=== PATIENT | female | born 1980 | race Caucasian/White ===

== ENCOUNTER 2020-03-10 08:47 | Outpatient (REF) | payer BC, SELFPAY ==
--- NOTE | 2020-03-10 | US_ITS ---
EXAMINATION: ULTRASOUND-GUIDED THYROID FINE-NEEDLE ASPIRATION CLINICAL INFORMATION: Right thyroid nodule COMPARISON: Previous thyroid ultrasound 01/16/2020 TECHNIQUE: Procedure and risks and benefits including bleeding and infection were discussed with the patient and informed consent was obtained. The right neck was prepped and draped in usual sterile fashion. Skin and soft tissues were anesthetized with 1% lidocaine plain. Using ultrasound guidance and a 25-gauge needle, access to the 1.3 x 0.8 x 0.9 cm slightly heterogeneous nodule in the inferior right lobe was obtained. 3 25-gauge FNA specimens were obtained. FINDINGS: There is a 1.3 x 0.8 x 0.9 cm slightly heterogeneous nodule in the inferior right lobe that was targeted for fine-needle aspiration. US/US guided fine needle asp IMPRESSION: Right thyroid nodule fine-needle aspiration.
[2020-03-10] MEDS: Lidocaine HCl 1 % MPF 5 ML VIAL SUBCUT (09:08)
== END 2020-03-10 08:48 | disposition home or self-care (01) ==
LOC: HO.US 08:47
PROVIDERS: PCP Internal Medicine; Visit Provider Internal Medicine
DX: E04.1 Nontoxic single thyroid nodule (principal)
CPT/HCPCS: 10005; 88172; 88173

== ENCOUNTER → 2020-04-23 12:11 | Outpatient (BNVA) | payer BC, SELFPAY | PROVIDERS: PCP Internal Medicine; Visit Provider Physician Assistant | DX: Z76.89 Persons encountering health services in other specified circumstances (principal) ==

== ENCOUNTER → 2020-06-10 08:14 | Outpatient (BNVA) | payer BC, SELFPAY | PROVIDERS: PCP Internal Medicine; Visit Provider Physician Assistant ==

== ENCOUNTER 2020-09-16 12:23 | Outpatient (REF) | payer BC, SELFPAY | END 2020-09-16 12:24 | disposition home or self-care (01) | LOC: HO.LAB 12:23 | PROVIDERS: Visit Provider Internal Medicine | DX: Z20.822 Contact with and (suspected) exposure to COVID-19 (principal) | CPT/HCPCS: C9803; U0003; U0005 ==

== ENCOUNTER 2024-04-02 11:08 | Outpatient (REF) | payer BC, SELFPAY ==
[2024-04-02 14:24] LABS: MANUAL DIFF FLAG NO
[2024-04-02 14:27] LABS: Basophils Absolute Auto 0.1 X10*3/uL (0.0-0.2); Basophils Percent Auto 1.1 % (0-2); Eosinophils Absolute Auto 0.3 X10*3/uL (0.0-0.4); Hematocrit 36.7 % (37.0-47.0); Hemoglobin 12.2 g/dl (12.0-16.0); Imm Gran Abs Auto 0.02 X10*3/uL (0.00-0.03); Imm Gran Pct Auto 0.3 % (0.0-0.4); Mean Corpuscular HGB Conc 33.2 g/dl (31.0-35.0); Mean Corpuscular Hemoglobin 29.6 pg (27.0-33.0); Mean Corpuscular Volume 89.1 fL (80.0-98.0); Mean Platelet Volume 9.4 fL (9.4-12.3); Monocytes Absolute Auto 0.8 X10*3/uL (0.1-1.2); Monocytes Percent Auto 12.4 % (2-11); Neutrophils Absolute Auto 3.4 x10*3/uL (2.0-8.3); Neutrophils Percent Auto 51.2 % (45-73); Platelet Count 427 X10*3/uL (160-400); Red Blood Count 4.12 X10*6/uL (4.20-5.50); Red Cell Distribution Width 13.6 % (11.0-16.0); White Blood Count 6.6 X10*3/uL (4.8-10.8)
[2024-04-02 14:45] LABS: Alanine Aminotransferase 17 U/L (0-31); Albumin Level 4.3 g/dL (3.5-5.0); Alkaline Phosphatase 63 U/L (39-117); Anion Gap 13 (12-20); Aspartate Amino Transferase 23 U/L (5-31); Bilirubin Total 0.4 mg/dL (0.0-1.0); Blood Urea Nitrogen 11 mg/dL (9-16); Calcium 8.8 mg/dL (8.4-10.2); Carbon Dioxide 25 mmol/L (22-29); Chloride 105 mmol/L (96-108); Cholesterol 185 mg/dL (<200); Estimated Glomerular Filt Rate > 60; Glucose Random 84 mg/dL (60-115); HDL Cholesterol 51 mg/dL (>40); LDL Cholesterol Calculated 124 mg/dL (<100); Potassium 3.7 mmol/L (3.3-5.1); Sodium 139 mmol/L (135-145); Triglycerides 50 mg/dL (<150)
[2024-04-02 14:59] LABS: Estimated Average Glucose 105 mg/dL; Hemoglobin A1C 110.3707 umol/L; Hemoglobin A1c % 5.3 % (<6.0); Total Hemoglobin (HGBA1C) 3188.8656 umol/L
[2024-04-02 15:01] LABS: TSH reflex Free T4 3.21 uIU/mL (0.32-4.0)
[2024-04-02 15:10] LABS: Folate 7.7 ng/mL (> or = 4.0); Vitamin B12 628 pg/mL (200-900)
[2024-04-03 08:25] LABS: HIV AB/AG Nonreactive (Nonreactive); HIV Num 1 0.06 S/CO (0.00-0.99); ~HepC Num1 0.14 S/CO (0.00-0.79); ~Hepatitis C Antibody Nonreactive (Nonreactive)
== END 2024-04-02 11:09 | disposition home or self-care (01) ==
LOC: HO.CHCLDS 11:08
PROVIDERS: Visit Provider Internal Medicine
DX: E66.3 Overweight (principal); Z13.1 Encounter for screening for diabetes mellitus
CPT/HCPCS: 36415; 80053; 80061; 82607; 82746; 83036; 84443; 85025; 86803; 87389

== ENCOUNTER 2025-01-21 11:02 | Outpatient (REF) | payer BC, SELFPAY ==
--- OUTSIDE RECORDS SUMMARY | 2025-01-21 10:15 | XMS_ITS | Encounter Summary ---
Author Organization [employer] Address [address] [place] [address] 7 [place] [address] Care Team Providers Care Software Configuration Specialist Name Role Phone Hunter Mcduffie MD Primary Care Prov ider Reason for Referral * Imaging (Routine) - Authorized Specialty Diagnoses / Procedures Referred By Contac t Referred To Contact Radiology Diagnoses Encounter for screening mammogram for malignant neoplasm of breast Procedures BI Mammogram Screening Tomosynthesis Bilateral Hunter Mcduffie MD [address] [place] [address] Phone: tel: fax: [facility] Referral ID Status Reason Start Date Expiration Date V isits Requested Visits Authorized [id number] Authorized 01/21/2025 01/21/2026 1 1 Encounter Details Date Type Department Care Team ([facility] st Contact Info) Description 01/21/2025 10:15 AM EDT Telemedicine [facility] [address] [place] [address] Huntre Mcduffie MD [address] [place] [address] Encounter for screening mammogram for malignant neoplasm of breast (Primary Dx) Social History Tobacco Use Types Packs/Day Years Used Date Smoking Tobacco: Never Smokeless Tobacco: Never Alcohol Use Standard Drinks/Week Comments Never 0 (1 standard drink = 0.6 oz pur e alcohol) Depression Answer Date Recorded Patient Health Questionnaire-9 Score 4 01/21/2025 Patient Health Questionnaire-9 Score 4 01/21/2025 Last PHQ-9: Questionnaire Data Not on file 0 01/21/2025 Housing Stability Answer Date Recorded What is your housing situation today? I have zoe duran 02/21/[address] you li ve. Do you have problems with any of the following? None of the above 02/21/2024 Food Insecurity Answer Date Recorded Within the past 12 months, y ou worried that your food would run out before you got money to buy more: Never True 02/21/2024 Within the past 12 months,th e food you bought just didn't last and you didn't have enough money to get more: Never True Transportation Answer Date Recorded In the past 12 months, has l ack of transportation kept you from medical appts, meetings, work or from getting things needed for daily living? No 02/21/2024 Utilities Answer Date Recorded In the past 12 months, has t he electric, gas, oil or water company threatened to shut off services in your home? No 02/21/2024 Depression Answer Date Recorded Patient Health Questionnaire-2 Score 2 01/21/2025 Internet Access Answer Date Recorded Internet Access Q1 Yes 02/21/2024 Internet Access Q2 Not on file 02/21/2024 Comments Yes Sex and Gender Information Value Date Recorded Sex Assigned at Female 02/21/2022 10:27 AM EDT Legal Sex Female 10:27 AM EDT Gender Identity Choose not to disclose 10:27 AM EDT Sexual Orientation Choose not to disclose 2021 10:27 AM EDT documented as of this encounter Functional Status * Over the past 2 weeks, how often have you been bothered by any of the following problems? Question Answer Date of Assessment Author Patient Health Questionnaire-2 Score 2 12/25 10:08 AM Carol Ruiz MA * Little interest or pleasure in doing things Answer Date of Assessment Author Several days 01/21/2025 10:08 AM Bethany Ruiz MA * Feeling down, depressed, or hopeless Answer Date of Assessment Author Several days 01/21/2025 10:08 AM Bethany Ruiz MA * Trouble falling or staying asleep, or sleeping too much Answer Date of Assessment Author Not at all 01/21/2025 10:08 AM Bethany Ruiz MA * Feeling tired or having little energy Answer Date of Assessment Author Not at all 01/21/2025 10:08 AM Bethany Ruiz MA * Poor appetite or overeating Answer Date of Assessment Author Several days 01/21/2025 10:08 AM Bethany Ruiz MA * Feeling bad about yourself - or that you are a failure or have let yourself or your family down Answer Date of Assessment Author Not at all 01/21/2025 10:08 AM Bethany Ruiz MA * Trouble concentrating on things, such as reading the newspaper or watching television Answer Date of Assessment Author Several days 01/21/2025 10:08 AM Bethany Ruiz MA * Moving or speaking so slowly that other people could have noticed? Or the opposite - being so fidgety or restless that you have been moving around a lot more than usual. Answer Date of Assessment Author Not at all 01/21/2025 10:08 AM Bethany Ruiz MA * Thoughts that you would be better off or hurting yourself in some way Answer Date of Assessment Author Not at all 01/21/2025 10:08 AM Bethany Ruiz MA * Patient Health Questionnaire-9 Score Answer Date of Assessment Author 4 01/21/2025 10:08 AM Bethany Ruiz MA * How difficult have these problems made it for you to do your work, take care of things at home, or get along with other people? Answer Date of Assessment Author Somewhat difficult 01/21/2025 10:08 AM Carol Ruiz MA documented as of this encounter Plan of Treatment Scheduled Orders Name Type Priority Associated Diagnoses Orde r Schedule BI Mammogram Screening Tomosynthesis Bilateral Imaging Routine Encounter for screening mammogram for malignant neoplasm of breast Expected: 01/21/2025, Expires: 03/23/2026 documented as of this encounter Visit Diagnoses Diagnosis Encounter for screening mammogram for malignant neoplasm of breast- Primary documented in this encounter Additional Health Concerns Assessment Noted Time PHQ-9 Depression Total Score: 4 01/22/20 25 10:08 AM EDT documented as of this encounter Care Teams Software Configuration Specialist Relationship Specialty Start Date End Date TonyHunter Babb MD [address] [place] [id number] PCP - General Internal Medicine 11/19/19 documented as of this encounter
--- OUTSIDE RECORDS SUMMARY | 2025-01-21 12:31 | XMS_ITS | Encounter Summary ---
Author Organization [employer] Address [address] [facility] 7 [place] [address] Care Team Providers Care Concrete Pointer Name Role Phone Hunter Mcduffie MD Primary Care Prov ider Reason for Visit * Reason Onset Date Comments chart prep 01/20/2025 Encounter Details Date Type Department Care Team ([facility] Contact Info) Description 01/20/2025 Telephone [facility] [address] [place] [address] Hunter Mcduffie MD [address] [place] [address] chart prep Social History Tobacco Use Types Packs/Day Years [...] AM EDT documented as of this encounter Miscellaneous Notes * Telephone Encounter - Carol Fuentes MA - 01/20/2025 11:06 AM EDT Chart Prep Labs: not done Images: done Referrals: appointment pending Vaccines due: Flu, PCV20, Tdap, and Hep B Screenings: colonoscopy and mammogram Overdue care gaps: SBIRT and PHQ-9 documented in this encounter Plan of Treatment Not on file documented as of this encounter Visit Diagnoses Not on filedocumented in this encounter Additional Health Concerns Assessment Noted Time PHQ-9 Depression Total Score: 13 024 2:37 PM EDT documented as of this encounter Care Teams Concrete Pointer Relationship Specialty Start Date End Date Hunter Mcduffie MD [address] [place] [phone] PCP - General Internal Medicine 11/19/19 documented as of this encounter
--- OUTSIDE RECORDS SUMMARY | 2025-01-21 12:31 | XMS_ITS | Encounter Summary ---
Author Organization [employer] Address [address] [facility] [address] [place] [address] Care Team Providers Care Rn Documentation Name Role Phone Hunter Mcduffie MD Primary Care Prov ider Encounter Details Date Type Department Care Team (Latest Contact Info) Description 01/21/2025 Travel Social History Tobacco Use Types Packs/Day Years [...] as of this encounter Plan of Treatment Not on file documented as of this encounter Visit Diagnoses Not on filedocumented in this encounter Additional Health Concerns Assessment Noted Time PHQ-9 Depression Total Score: 4 01/22/20 25 10:08 AM EDT documented as of this encounter Care Teams Rn Documentation Relationship Specialty Start Date End Date Hunter Mcduffie MD [address] [place] [id number] PCP - General Internal Medicine 11/19/19 documented as of this encounter
--- OUTSIDE RECORDS SUMMARY | 2025-01-21 12:31 | XMS_ITS | Clinical Summary ---
Author Organization [employer] Address [address] [facility] [address]t [place] [address] Care Team Providers Care Pvc Loader Name Role Phone Hunter Mcduffie MD Primary Care Prov ider Allergies No known active allergies Medications * This document contains information received from the source organization and may not represent a complete record from that organization. fexofenadine (Jemima) 180 MG tablet Take 1 tablet (180 mg) by mouth if needed each day (Allergies). 30 tablet 3 04/02/2024 Active ibuprofen 600 MG tabletIndicatio ns:Acute left otitis media Take 1 tablet (600 mg) by mouth every 8 (eight) hours if needed for moderate pain or mild pain. 30 tablet 1 04/08/2024 Active Active Problems Problem Noted Date Diagnosed Date Mild intermittent asthma without complication Assessment & Plan (05/06/2024 3:11 PM EST): Will order PFT to evaluate for asthma and severity Left non-suppurative otitis media 05/06/2024 Seasonal allergies 04/02/2024 Assessment & Plan (04/02/2024 12:22 PM EST): Will send jemima discussed home lakhwinder, she does not have cats or dogs at home Physical exam 04/02/2024 Assessment & Plan (04/02/2024 12:24 PM EST): Unremarkable physical exam, will send routine blood work Encounter to establish care 02/28/2024 Assessment & Plan (02/28/2024 8:35 AM EST): No follow up with pcp in 2 years No hx of hospitalization No recent er visits Pmhx- Pshx: csec 2012, tubal ligation 2012 All- Meds- Sexually active with 1 male partner A1 Severe episode of recurrent major depressive disorder, with psychotic features (CMS/HCC) 02/28/2024 Assessment & Plan (04/02/2024 12:23 PM EST): Symptoms improving, no suicidal/homicidal ideas, continue psychotherapy, call back if worsening Assessment & Plan (03/08/2024 2:28 PM EST): Psychotic features mood-incongruent Referral to psych med management and Individual therapy. Assessment & Plan (02/28/2024 8:36 AM EST): NO active sucidal/homicidal ideas, she feels down, depressed, will refer to , follow up in 6 weeks Screening for malignant neoplasm of colon 2023 Assessment & Plan (02/28/2024 8:41 AM EST): Will refer to gi for screening colon cancer Encounter for screening mamm ogram for malignant neoplasm of breast 02/28/2024 Assessment & Plan (02/28/2024 8:42 AM EST): Will send mammogram Screening for cervical cancer 02/28/2024 Assessment & Plan (02/28/2024 8:44 AM EST): Will refer for a pap smear she prefers a female provider Comments Yes Encounters Date Type Department Care Team Description 01/21/2025 10:15 AM EDT Telemedicine [facility] [address] [place] [address] Hunter Mcduffie MD Encounter for screening mammogram for malignant neoplasm of breast (Primary Dx) 01/21/2025 Travel 01/20/2025 Telephone [facility] [address] [place] [address] Hunter Mcduffie MD chart prep 01/14/2025 Orders Only [facility] [address] [place] [address] Catrina Smith MD Pelvic pain (Primary Dx); Post-menopausal bleeding 01/14/2025 Results Follow-Up [facility] [address] [place] [address] Catrina mSith MD Us Pelvis complete 01/13/2025 2:15 PM EDT Office Visit [facility] [address] [place] [address] Hunter Mcduffie MD Other fatigue (Primary Dx); Tremor; Memory loss 01/13/2025 Travel 01/09/2025 Telephone [facility] [address] [place] [address] Hunter Mcduffie MD Referral 01/09/2025 Telephone [facility] [address] [place] [address] Hunter Mcduffie MD Nurse Triage 01/09/2025 Telephone [facility] [address] [place] [address] Hunter Mcduffie MD Referral 12/20/2024 11:00 AM EDT Office Visit [facility] [address] [place] [address] Catrina Smith MD Encounter for screening for malignant neoplasm of colon (Primary Dx); Pelvic pain; Post-menopausal bleeding 12/20/2024 Travel 12/16/2024 Telephone [facility] [address] [place] [address] Hunter Mcduffie MD Nurse Triage from Last 3 Months Family History Medical History Relation Name Comments Hypertension Father Osteoarthritis Father Anxiety disorder Mother Depression Mother Colon cancer Paternal Grandfather Relation Name Status Comments Father Mother Paternal Grandfather Social History Tobacco Use Types Packs/Day Years Used Date Smoking Tobacco: Never Smokeless Tobacco: Never Tobacco Cessation:Counseling Given: Not Answered Alcohol Use Standard Drinks/Week Comments Never 0 [...] not to disclose 2021 10:27 AM EDT Last Filed Vital Signs Vital Sign Reading Time Taken Comments Blood Pressure 144/84 01/13/2025 2:43 PM EDT Pulse 74 01/13/2025 2:43 PM EDT Temperature 36.7 C (98.1 F) 01/13/2025 2:43 PM EDT Respiratory Rate 14 01/13/2025 2:43 PM EDT Oxygen Saturation 98% 01/13/2025 2:43 PM EDT Inhaled Oxygen Concentration - - Weight 72.1 kg (159 lb) 01/13/2025 2:43 PM EDT Height 153.7 cm (5' 0.5 ) 01/13/2025 2:43 PM EDT Body Mass Index 30.54 01/13/2025 2:43 PM EDT Plan of Treatment Health Maintenance Due Date Last Done Comments CT Colonography 1978 Colonoscopy 1978 Colorectal Cancer Screening 1978 Dental Oral Exam 1978 Dental Prophylaxis 1978 Dental X-Ray: Bitewings 1978 Dental X-Ray: Full Mouth 1978 FIT DNA/Cologuard 1978 FIT 1978 FOBT 1978 Sigmoidoscopy 1978 Family Planning (PISQ) 1993 DTaP/Tdap/Td Vaccines (1 - Tdap) 1997 Hepatitis B Vaccines (1 of 3 - 19+ 3-dose series) 1997 Pneumococcal Vaccine: Pediatrics (0 to 5 Years) and At-Risk Patients (6 to 49) Years (1 of 2 - PCV) 1997 Mammogram 2018 COVID-19 Vaccine (2023-2 5 season) 2024 Influenza Vaccine (#1) 2024 01/29/2015 Cervical Cancer Screening 03/04/2025 HPV/Cotest 03/04/2025 03/04/2020 Pap Smear 03/04/2025 03/04/2020 Tobacco Screening 12/20/2025 12/20/2024 Alcohol/Substance Use Screening 01/21/2026 01/21/2025 Depression Screening 01/21/2026 01/21/2025, 01/21/2025 Disability Screening 01/21/2026 01/21/2025 SDOH Screening 01/21/2026 01/21/2025 Zoster Vaccines (1 of 2) 2028 RSV Patients and Patients Aged 60 years or older (1 - 1-dose 75+ series) 2053 HIV Screening Completed 04/02/2024, 12/24/2019 Hepatitis C Screening Completed 04/02/2024 HIB Vaccines Aged Out No longer eligi ble based on patient's age to complete this topic HPV Vaccines Aged Out No longer eligi ble based on patient's age to complete this topic Hepatitis A Vaccines Aged Out No long er eligible based on patient's age to complete this topic IPV Vaccines Aged Out No longer eligi ble based on patient's age to complete this topic Meningococcal B Vaccine Aged Out No l onger eligible based on patient's age to complete this topic Meningococcal Vaccine Aged Out No cesar mercedes eligible based on patient's age to complete this topic RSV under 20 months Aged Out No longe r eligible based on patient's age to complete this topic Rotavirus Vaccines Aged Out No longer eligible based on patient's age to complete this topic Procedures Procedure Name Priority Date/Time Associated Diagnosis Comments US PELVIS TRANSVAGINAL Routine 01/10/2025 Post-menopausal bleeding US PELVIS COMPLETE Routine 01/10/2025 Post-menopausal bleeding POCT , URINE Routine 12/20/2024 11:27 AM EDT Pelvic pain POCT URINALYSIS DIPSTICK Routine 12/20/2024 11:14 AM EDT Pelvic pain HEPATITIS C AB W/REFL TO HCV RNA, QN, PCR Routine 04/02/2024 11:10 AM EST Overweight (BMI 25.0-29.9) HIV 1/2 ANTIGEN/ANTIBODY, FOURTH GENERATION W/RFL Routine 04/02/2024 11:10 AM EST Overweight (BMI 25.0-29.9) THINPREP PAP AND HPV MRNA E6/E7 Routine 03/04/2020 11:53 AM EST from Last 3 Months or Most Recently Relevant to Health Maintenance Results * Us Pelvis complete (01/10/2025) Anatomical Region Laterality Modality Pelvis Ultrasound us Catrina Smith MD [facility] US PROCEDURES Final Result * US Pelvis Transvaginal (01/10/2025) Anatomical Region Laterality Modality Pelvis Ultrasound us Catrina MAXWELL US PROCEDURES Final Result * POCT Urine (12/20/2024 11:27 AM EDT) Preg Test, Ur Negative Negative, Indeterminate, None Detected, Invalid, Specimen unsatisfactory for evaluation, Weakly Positive, 2+ Comment:Qc test passed QC Media Lot # [id number] Lot# Expiration Date ,026 Urine 12/20/2024 11:2 7 AM EDT Catrina Smith MD POINT OF CARE TEST ENTER/EDIT OR DERABLES Final Result * POCT Urinalysis (12/20/2024 11:14 AM EDT) Color, UA Yellow Clarity, UA Clear Glucose, UA Negative Bilirubin, UA Negative Ketones, UA Negative Spec Grav, UA 1.025 Blood, UA Negative Negative, None Detected pH, UA 6.0 Protein, UA Negative Urobilinogen, UA 0.2 Leukocytes, UA Negative Negative, Rare, Trace Nitrite, UA Negative Negative, None Detected Appearance, UA clear QC Media Lot # [id number] Lot# Expiration Date 3312,026 Urine 12/20/2024 11:1 4 AM EDT Catrina Smith MD POINT OF CARE TEST ENTER/EDIT OR DERABLES Final Result * Hepatitis C Antibody with Reflex to HCV, RNA, Quantitative, Real-Time PCR (04/02/2024 11:10 AM EST) Pathologist [facility] Hepatitis C Antibody Nonreactive Nonreactive [facility] Comment:Antibodies to HCV no t detected; does not exclude early acuteHCV infection. Blood Venous blood specimen / Unknown 04/02/2024 11:10 AM EST 04/02/2024 2:12 PM EST Hunter Cuellar MD LAB BLOOD ORDERABL ES Final Result [facility] [address] [place] [address] [phone] * HIV-1/2 Antigen and Antibodies, Fourth Generation, with Reflexes (04/02/2024 11:10 AM EST) HIV AB/AG Nonreactive Nonreactive [facility] Comment:HIV-1 p24 Ag and/or HIV-1/HIV-2 Ab not detected.A test result that is nonreactive does not exclude thepossibility of exposure to or infection with HIV-1 and/orHIV-2. Nonreactive results in this assay for individualswith prior exposure to HIV-1 and/or HIV-2 may be due toantigen and antibody levels that are below the limit ofdetection of this assay.The [employer] HIV Ag/Ab Combo assay result andsupplemental assay results should be interpreted inconjunction with the patient's clinical presentation,history and other laboratory results. If the results areinconsistent with clinical evidence, additional testing issuggested to confirm the result. Blood Venous blood specimen / Unknown 04/02/2024 11:10 AM EST 04/02/2024 2:12 PM EST Hunter Cuellar MD LAB BLOOD ORDERABL ES Final Result [facility] [address] [place] [phone] * THINPREP PAP AND HPV mRNA E6/E7 (03/04/2020 11:53 AM EST) HPV nRNA E6/E7 Not Detected Not Detected [facility] Comment: This test was performed using the APTIMA HPV Assay ([employer] This assay detects E6/E7 viral messenger RNA (mRNA) from 14 high-risk HPV types (16,18,31,33,35,39,45,51,52,56,58,59,66,68). The analytical performance characteristics of this assay have been determined by [employer]. The modifications have not been cleared or approved by the FDA. This assay has been validated pursuant to the CLIA regulations and is used for clinical purposes. Clinical Information: SEE COMMENT [facility] Comment:None given COMMENT [facility] Comment: EXPLANATORY NOTE: The Pap is a screening test for cervical cancer. It is not a diagnostic test and is subject to false negative and false positive results. It is most reliable when a satisfactory sample, regularly obtained, is submitted with relevant clinical findings and history, and when the Pap result is evaluated along with historic and current clinical information. Museum Exhibit Technician: [facility] Comment: YolandaXM, CT(ASCP) CT screening location: [place] [address] Interpretation/Res ult: [facility] Comment:Negative for intraep ithelial lesion or malignancy. LMP: [facility] Comment:03/02/2020 Prev. BX: NONE [facility]IVEN [facility] Prev. PAP: [facility]MENT [facility] Comment:NONE GIVEN SOURCE: [facility] Comment:None given Statement Of Adequacy: [facility] Comment: Satisfactory for evaluation. Endocervical/transformation zone component present. 03/04/2020 11:5 3 AM EST Sada Pardo CNM LAB PATHOLOGY ORDERABLES Final Result Performing Organization Address City/State/[facility] Co de Phone Number [facility] [address] from Last 3 Months or Most Recently Relevant to Health Maintenance Insurance PPO Care Teams Pvc Loader Relationship Specialty Start Date End Date Hunter Mcduffie MD [address] [place] [phone] PCP - General Internal Medicine 11/19/19
[2025-01-21 14:16] LABS: MANUAL DIFF FLAG NO
[2025-01-21 14:20] LABS: Hematocrit 34.1 % (37.0-47.0); Hemoglobin 11.3 g/dl (12.0-16.0); Imm Gran Abs Auto 0.03 X10*3/uL (0.00-0.03); Imm Gran Pct Auto 0.4 % (0.0-0.4); Lymphocytes Absolute Auto 2.3 X10*3/uL (1.2-4.9); Mean Corpuscular HGB Conc 33.1 g/dl (31.0-35.0); Mean Corpuscular Hemoglobin 28.3 pg (27.0-33.0); Mean Corpuscular Volume 85.3 fL (80.0-98.0); NRBC Abs Auto 0.000 X10*3/uL (0.0-0.012); NRBC Pct Auto 0.0 /100WBC (0.0-0.2); Platelet Count 456 X10*3/uL (160-400); Red Blood Count 4.00 X10*6/uL (4.20-5.50); White Blood Count 7.6 X10*3/uL (4.8-10.8)
[2025-01-21 15:21] LABS: Alanine Aminotransferase 14 U/L (0-31); Albumin Level 4.3 g/dL (3.5-5.0); Alkaline Phosphatase 67 U/L (39-117); Anion Gap 11 (12-20); Aspartate Amino Transferase 23 U/L (5-31); Blood Urea Nitrogen 15 mg/dL (9-16); Calcium 8.7 mg/dL (8.4-10.2); Carbon Dioxide 24 mmol/L (22-29); Chloride 108 mmol/L (96-108); Estimated Glomerular Filt Rate > 60; Potassium 3.8 mmol/L (3.3-5.1); Sodium 139 mmol/L (135-145); Total Protein 7.8 g/dL (6.5-8.0)
[2025-01-21 16:06] LABS: Folate 8.4 ng/mL (> or = 4.0); Vitamin B12 830 pg/mL (200-900)
== END 2025-01-21 11:03 | disposition home or self-care (01) ==
LOC: HO.CHCLDS 11:02
PROVIDERS: Visit Provider Internal Medicine
DX: R53.83 Other fatigue (principal)
CPT/HCPCS: 36415; 80053; 82607; 82746; 84443; 85025